=== PATIENT | male | born 1980 | race Caucasian/White ===

== ENCOUNTER → 2018-09-14 | Outpatient (CLI) | payer BC ==
[~2018-09-14] MED LIST: ANAPROX DS550 MG PO; CYCLOBENZAPRINE10 MG PO; DOXYCYCLINE MO100 MG PO; IBU800 MG PO; PHAZYME125 MG PO; PREDNISONE20 M1 PO; SEPTRA DS 800 M1 TAB PO; TRAMADOL HCL50 MG PO
== END | disposition home or self-care (01) ==
LOC: RAD 13:00
DX: J18.1 Lobar pneumonia, unspecified organism (principal); J18.0 Bronchopneumonia, unspecified organism; R91.8 Other nonspecific abnormal finding of lung field; R06.2 Wheezing

== ENCOUNTER 2019-01-30 11:51 | Emergency (ER) | payer BC ==
[~2019-01-30] VITALS: Wt 99.8 kg
[~2019-01-30 11:51] MED LIST changes: -CYCLOBENZAPRINE10 MG PO; -IBU800 MG PO; -PREDNISONE20 M1 PO
[2019-01-30] MEDS ORDERED: IBU800 MG PO (13:59)
[2019-01-30] MEDS ORDERED: CYCLOBENZAPRINE10 MG PO (13:59)
[2019-01-30] MEDS ORDERED: PREDNISONE20 M1 PO (13:59)
== END 2019-01-30 14:01 | disposition home or self-care (01) ==
LOC: ED 11:51
DX: S29.012A Strain of muscle and tendon of back wall of thorax, initial encounter (principal); M62.830 Muscle spasm of back; M54.5 Low back pain; X50.0XXA Overexertion from strenuous movement or load, initial encounter; Y93.89 Activity, other specified; Y92.89 Other specified places as the place of occurrence of the external cause; Y99.8 Other external cause status